=== PATIENT | female | born 1985 | race Caucasian/White ===

== ENCOUNTER 2023-11-03 15:42 | Emergency (ER) | payer BC, SELFPAY ==
[2023-11-03 15:42] VITALS: BMI 23.1
[2023-11-03 15:44] VITALS: BP 120/80
[2023-11-03 16:02] LABS: % Basophils 0.5 % (0-2); % Eosinophils 2.4 % (0-6); % Immature Granulocytes 0.1 % (0-0.5); % Lymphocytes 44.2 % (20.5-51.1); % Neutrophils 43.8 % (42.2-75.2); Absolute Eosinophils 0.2 10^3/uL (0-0.7); Absolute Lymphocytes 3.7 10^3/uL (1.2-3.4); Absolute Monocytes 0.8 10^3/uL (0.1-0.6); Absolute Neutrophils 3.7 10^3/uL (1.4-6.5); Hematocrit 36.2 % (37.0-47.0); Hemoglobin 12.5 g/dL (12.0-16.0); Mean Corp Hgb Conc. 34.5 g/dL (33.0-37.0); Mean Corpuscular Hgb 29.6 pg (27.0-31.0); Mean Corpuscular Volume 85.8 fL (81.0-99.0); Mean Platelet Volume 9.3 fL (7.4-10.4); Nucleated Red Blood Cells % 0 %; Platelet Count 365 10^3/uL (130-400); Red Blood Cell Count 4.22 10^6/uL (4.20-5.40); Red Cell Dist. Width 11.9 % (11.5-14.5); White Blood Cell Count 8.3 10^3/uL (4.8-10.8)
[2023-11-03 16:14] LABS: ALT (SGPT) 14 U/L (0-35); AST (SGOT) 20 U/L (14-36); Albumin 4.3 g/dl (3.5-5.0); Alkaline Phosphatase 48 U/L (38-126); Blood Urea Nitrogen 12 mg/dl (7-17); Calcium 9.2 mg/dl (8.4-10.2); Carbon Dioxide 26 mmol/L (22-30); Glucose 80 mg/dl (70-99); Lipase 54 U/L (23-300); Total Bilirubin 0.5 mg/dl (0.2-1.3); Total Protein 7.1 g/dl (6.3-8.2); eGFR > 60.00
[2023-11-03 16:23] LABS: Chloride 102 mmol/L (98-107); Potassium 3.6 mmol/L (3.5-5.1); Sodium 137 mmol/L (135-145)
--- NOTE | 2023-11-03 17:20 | ED.GENMED ---
History of Present Illness
General
Chief Complaint: Abdominal Pain
Source: patient
Exam Limitations: none
Time Seen by Provider: 11/03/23 16:33
Nursing documentation reviewed up to this point in time: agreed with
Travel History
Have you had any contact with someone who has COVID-19?: No
Do you have any symptoms of coronavirus? Fever > 100 degrees, chills, cough, shortness of breath, sore throat, loss of taste or smell, muscle aches, or headache?: No
History of Present Illness
History of Present Illness:
pt is a 38 y/o F with h/o lupus not currently on treatment
here with mutliple complaints
R sided lymph node tender mnoticed 3 days ago
no significant increase in size ,no relief with tylenol and motrin
tender to palpate
otherwise no painful swallowing, no ear pain, no dentla pain or swelling.
but she did just complete 3 rounds of abx for otitis media on the right side
started here in september and was treated with zithromax
then went to pcp and got doxy
then saw dr. scales and got clarithromycin which she just completed
she also had a steroid taper; she was having more hearing loss, but it has improved
she has not had any recent ear pain, drainage, fever, chills.
but during the 3rd round of abx she got covid, tested pos on 2/. she had nasal congestion, joint aches and a slight cough
she has been feeling better.
then developed this swollen gland
and last night developed LLQ pain which is worse with omvement
she has had daily 1 episode of diarrhea for about a week
no signficiant diarrhea, not copious
went to PCP and was sent here to eval for diverticulitis.
Past History
Past History
ED Past Medical History: Other (lupus)
ED Past Surgical History: None
Review of Systems
Review of Systems
Allergies reviewed?: Yes
All Other Systems: Not applicable
Phy Exam
Physical Exam
Physical Exam:
GENERAL: Alert , in no apparent distress
EYE: pupils equal and reactive
NECK: Supple, small tonsillar CANDIS tender, no erythema to skin
ENT: mmm.
mild phyarngeal erythema
no exudate
CARDIAC: Regular rate and rhythm .
LUNGS: Clear breath sounds bilaterally, no acute respiratory distress, no wheezes/rales/rhonchi
ABDOMEN: Soft, LLQ mild pain, no r/g, no cvat, normal bowel sounds
NEUROLOGICAL: Alert and oriented, no focal neuro deficits
SKIN: Warm and dry, skin intact.
MUSCULOSKELETAL: No edema, well perfused. neg vahid's sign
PSYCH: Normal and appropriate interaction.
Course
Orders/Labs/Results
Orders:
Orders
11/03/23 15:51
Complete Blood Count/With Diff Urgent
Comprehensive Metabolic Panel Urgent
HCG, Serum Qualitative Screen Urgent
Comment: ADD ON
Lipase Urgent
Monotest Urgent
Comment: ADD ON
11/03/23 17:18
Add On- LAB Urgent
Tests Added?: monospot
11/03/23 17:19
Add On- LAB Urgent
Tests Added?: hcg qual
0.9% Sodium Chloride 1000 ml [Nss] 1,000 ml IV BOLUS
Ketorolac [Toradol] 15 mg IV NOW STA
11/03/23 17:31
UA Reflex to Culture [Urinalysis Reflex To Culture] Urgent
Date Specimen was Collected: 11/03/23
Time Specimen was Collected: 17:24
Urine Microscopic Reflex Cult Urgent
Influenza A+B Rapid Molecular Urgent
SUSAN Source: Nasal Swab
Specimen Description:
11/03/23 18:04
CT Abd/pel W Iv And Oral Contr Urgent
Comment:
Reason For Exam: left lower abd pain and diarrhea
Iohexol [Omnipaque] See Protocol PO NOW STA
Abnormal Lab Results
11/03/23 11/03/23
15:51 17:31
Hct 36.2 L %
(37.0-47.0)
Absolute Lymphs (auto) 3.7 H 10^3/uL
(1.2-3.4)
Absolute Monos (auto) 0.8 H 10^3/uL
(0.1-0.6)
Leukocyte Esterase Rfl Trace A
(Negative)
Monoscreen Positive A
(Negative)
11/03/23 15:51
11/03/23 15:51
Vital Signs
Initial and Last Documented VS:
Initial Vital Signs
Temp Pulse Resp BP Pulse Ox
99.2 F 87 18 120/80 97
11/03/23 15:44 11/03/23 15:44 11/03/23 15:44 11/03/23 15:44 11/03/23 15:44
Last Documented Vital Signs
Temp Pulse Resp BP Pulse Ox
99.2 F 105 18 112/75 97
11/03/23 15:44 11/03/23 21:40 11/03/23 15:44 11/03/23 21:40 11/03/23 15:44
MDM/Problems Addressed
Differential Diagnosis Includes:
abdominal pain, diarrhea, colitis, diverticulitis, strep, covid, flu, mono
MDM/Problems Addressed:
38 y/o F with h/o lupus
here with right sided anterior cervical lymph node x 4 days
and LLQ pain today
no fever
has had recent abx for sinus infectiosn and then got covid and now has new symptoms
her abdominal exam was tender minimally on L side
givne her symptoms, i did send a mono which was pos which would explain CANDIS, and we did proceed with ct imaging to eval spleen given her pain
no splenomgaly or concerning findings
no indication for abx
pt feels well on d/c
d/c home.
*Critical Care Note
Total Time (30-74mins, 75-104mins- exclusive of procedures): Not Applicable
ED Attending Note
-
Portions of this chart may have been created with voice recognition software.� Occasional wrong word or��sound alike� substitutions may have occurred due to the inherent limitations of voice recognition software.
Discharge Plan
Departure
Patient Disposition: Home (Routine Discharge)
Date of Disposition: 11/03/23
Time of Disposition: 21:24
Patient with high blood pressure during this ER visit?: No
Condition: Fair
Covid-19: Not Applicable
Discharge Problem:
Mononucleosis
Instructions: Mononucleosis (DC)
Prescriptions:
No Action
multivitamin Tablet
1 tab PO DAILY
fluoxetine [Prozac] 20 mg Capsule
60 mg PO DAILY
Benlysta 200 mg/mL Auto-Injector
200 mg SC .QWEEKSAT
Ubrelvy 100 mg Tablet
100 mg PO ONCE
Patient Comments:
pt. states she can take every 8 hours PRN
oxycodone 5 mg tablet
5 - 10 mg PO Q4HPRN PRN (Reason: moderate to severe pain) Qty: 20 0RF
tramadol 50 mg tablet
50 - 100 mg PO Q6H PRN (Reason: pain) Qty: 20 0RF
ondansetron 4 mg tablet,disintegrating
4 mg PO Q6H PRN (Reason: nausea) Qty: 14 0RF
azithromycin [Zithromax] 250 mg tablet
250 mg PO DAILY Qty: 4 0RF
oxycodone-acetaminophen [Percocet] 5-325 mg tablet
1 tab PO Q8H PRN (Reason: Pain) Qty: 5 0RF
Referrals:
Eleazar Juarez DO [Family Provider] - Follow up in 2-3 days
Activity Restrictions/Additional Instructions:
WE ARE NOT SURE THE CAUSE OF YOUR ABDOMINLA PAIN BUT IT COULD BE RELATED TO A FEW THINGS, - HAVING RECENTLY HAD COVID, HAVING ANTIBIOTICS OVER THE PAST FEW WEEKS, BUT ALSO IT COULD BE BECAUSE OF MONO WHICH IS ANOTHER VIRUS YOU TESTED POSITIVE FOR
THIS COULD ALSO CAUSE SWOLLEN LYMPH NODES
IT IS SELF LIMITING BUT CAN CAUSE FATIGUE FOR A FEW WEEKS
AVOID CONTACT SPORTS BECAUSE MONO CAN MAKE YOUR SPLEEN ENLARGED. YOU DIDN'T HAVE ANY SIGN OF SPLEEN ENLARGEMENT TODAY
RETURN FOR SEVERE PAIN, FEVER PERSISTENT, VOMITING, SEVERE DIARRHEA, INABILITY TO SWALLOW, TROUBLE BREATHING, SKIN CHANGES OR ANY COCNERNS
OTHERWISE TAKE MOTRIN OR TYLENOL FOR YOUR LYMPH NODE PAIN
THE LYMPH NODE SHOULD DECREASE IN SIZE
IF IT IS NOT, YOU SHOULD SEE YOUR DOCTOR.
Interventions
Interventions:
*Risk Screen - Suicide Last Done: 11/03/23 15:44
*General Assessment Last Done: 11/03/23 15:44
*Neglect/Abuse Screening Last Done: 11/03/23 15:44
*ED COVID-19 Vaccine History Last Done: 11/03/23 15:44
*Nursing Disposition Last Done: 11/03/23 21:40
MQ-Utiffi-Lexxgdzjsd Assessment Last Done: 11/03/23 16:50
Discharge Date and Time
Discharge Date/Time: 11/03/23 21:40
[2023-11-03 17:42] LABS: Urine Albumin Negative (Neg - Trace); Urine Bilirubin Negative (Negative); Urine Character Clear (Clear); Urine Color Yellow; Urine Glucose Negative (Negative); Urine Ketone Negative (Negative); Urine Leukocyte Trace (Negative); Urine Nitrite Negative (Negative); Urine Occult Blood Negative (Negative); Urine Specific Gravity 1.015 (<1.030); Urine Urobilinogen Negative (Neg - 1+)
[2023-11-03 17:51] LABS: Urine Red Blood Cell None Seen /HPF (0-2)
[2023-11-03] MEDS: NSS 1000 IV (18:07)
[2023-11-03] MEDS: TORADOL 15 MG IV (18:07)
[2023-11-03 18:10] LABS: HCG, Serum Qualitative Screen Negative; Monotest Positive (Negative)
[2023-11-03] MEDS: OMNIPAQUE 50 ML PO (18:18)
[2023-11-03 21:14] VITALS: BP 112/75
[2023-11-03 21:40] VITALS: BP 112/75
== END 2023-11-03 21:40 | disposition home or self-care (01) ==
LOC: EMR 15:42
PROVIDERS: Emergency Medicine; EMERGENCY PHYSICIAN Emergency Medicine; FAMILY PHYSICIAN Family Medicine
DX: B27.90 Infectious mononucleosis, unspecified without complication (principal); M32.9 Systemic lupus erythematosus, unspecified
CPT/HCPCS: 99284; 96374; 96361; 74177; 80053; 81003; 81015; 83690; 84703; 85025; 86308; 87502; Q9967

== ENCOUNTER 2024-01-01 15:05 | Emergency (ER) | payer BC, SELFPAY ==
[2024-01-01 15:12] VITALS: BP 119/82
[2024-01-01 15:39] LABS: % Eosinophils 3.8 % (0-6); % Immature Granulocytes 0.3 % (0-0.5); % Lymphocytes 39.1 % (20.5-51.1); % Monocytes 6.3 % (1.7-9.3); % Neutrophils 49.5 % (42.2-75.2); Absolute Basophils 0.1 10^3/uL (0-0.2); Absolute Eosinophils 0.3 10^3/uL (0-0.7); Absolute Lymphocytes 2.7 10^3/uL (1.2-3.4); Absolute Monocytes 0.4 10^3/uL (0.1-0.6); Absolute Neutrophils 3.4 10^3/uL (1.4-6.5); Hematocrit 38.1 % (37.0-47.0); Hemoglobin 12.8 g/dL (12.0-16.0); Mean Corp Hgb Conc. 33.6 g/dL (33.0-37.0); Mean Corpuscular Hgb 29.4 pg (27.0-31.0); Mean Corpuscular Volume 87.4 fL (81.0-99.0); Mean Platelet Volume 9.4 fL (7.4-10.4); Nucleated Red Blood Cells % 0 %; Platelet Count 328 10^3/uL (130-400); Red Blood Cell Count 4.36 10^6/uL (4.20-5.40); Red Cell Dist. Width 12.2 % (11.5-14.5); White Blood Cell Count 6.8 10^3/uL (4.8-10.8)
[2024-01-01 15:56] LABS: ALT (SGPT) 23 U/L (0-35); AST (SGOT) 26 U/L (14-36); Albumin 4.4 g/dl (3.5-5.0); Alkaline Phosphatase 41 U/L (38-126); Blood Urea Nitrogen 12 mg/dl (7-17); Calcium 9.3 mg/dl (8.4-10.2); Carbon Dioxide 25 mmol/L (22-30); Chloride 104 mmol/L (98-107); Glucose 98 mg/dl (70-99); Potassium 3.9 mmol/L (3.5-5.1); Sodium 135 mmol/L (135-145); Total Bilirubin 0.3 mg/dl (0.2-1.3); Total Protein 7.1 g/dl (6.3-8.2); eGFR > 60.00
[2024-01-01 16:08] LABS: Troponin I < 0.012 ng/ml
[2024-01-01 17:46] VITALS: BMI 22.2
[2024-01-01 17:49] VITALS: BP 119/83
[2024-01-01 18:00] VITALS: BP 122/77
[2024-01-01 19:00] VITALS: BP 115/85
[2024-01-01 19:10] LABS: D-Dimer < 0.27 ug/mlFEU (0.00-0.50)
--- NOTE | 2024-01-01 19:16 | ED.GENMED ---
History of Present Illness
General
Chief Complaint: Chest Pain
Source: patient
Time Seen by Provider: 01/01/24 17:22
Travel History
Have you had any contact with someone who has COVID-19?: No
Do you have any symptoms of coronavirus? Fever > 100 degrees, chills, cough, shortness of breath, sore throat, loss of taste or smell, muscle aches, or headache?: No
History of Present Illness
History of Present Illness:
38-year-old female with past medical history of lupus, antiphospholipid syndrome, migraines, anxiety/depression/PTSD presenting the emergency department for evaluation of left-sided chest discomfort has been ongoing for about 3 days, today pain
little bit more constant and sharp. Symptoms were accompanied by a right-sided headache described to be typical of her usual migraine but patient notes that her right eyes seem to be very heavy and was having a difficult time keeping her right eye
open as well as experiencing left upper extremity heaviness sensation. No fevers, chills, rigors, nausea, vomiting, shortness of breath, palpitations, diaphoresis, exertional dyspnea orthopnea, lower extremity edema. Patient notes that she is
currently being worked up by cardiology as well as endocrinology for various different ailments. No other concerns at this time.
Past History
Past History
ED Past Medical History: Psychiatric and Other (lupus)
ED Past Surgical History: Appendectomy, Cholecystectomy, Gynecological, Orthopedic and Tonsilectomy
Social History
Tobacco: Non-smoker
Alcohol: Occasional
Drug: None
Personal:
Living: with family
Review of Systems
Review of Systems
All Other Systems: ROS reviewed and negative except as documented in HPI and ROS
Phy Exam
Physical Exam
Physical Exam:
GENERAL: Alert , in no apparent distress
EYE: clear conjunctiva b/l
HEAD: NCAT
ENT: o/p clr, mmm.
CARDIAC: Regular rate and rhythm .
LUNGS: Clear breath sounds bilaterally, no acute respiratory distress, no wheezes/rales/rhonchi
ABDOMEN: Soft, without focal tenderness, no r/g, no cvat
NEUROLOGICAL: Alert and oriented x 3, moves all extremities, no dysmetria no dysarthria, no facial droop
SKIN: Warm and dry, skin intact.
MUSCULOSKELETAL: No edema, well perfused.
PSYCH: Normal and appropriate interaction.
Scores
Heart Failure Risk
Heart Failure Risk Score: Not Applicable
Heart Score for Chest Pain Patients
STEMI patient?: Not applicable
Withdrawal Assessment of Alcohol
Withdrawal Assessment Completed?: Not applicable
Course
Orders/Labs/Results
Orders:
Orders
01/01/24 15:06
Electrocardiogram (*1) Urgent
Reason for Study: Chest Pain
EKG- Treatment ONCE
01/01/24 15:27
Complete Blood Count/With Diff Urgent
Comprehensive Metabolic Panel Urgent
Troponin I Urgent
01/01/24 17:57
D-Dimer Urgent
01/01/24 15:27
01/01/24 15:27
Vital Signs
Initial and Last Documented VS:
Initial Vital Signs
Temp Pulse Resp BP Pulse Ox
97.7 F 91 18 119/82 100
01/01/24 15:12 01/01/24 15:12 01/01/24 15:12 01/01/24 15:12 01/01/24 15:12
Last Documented Vital Signs
Temp Pulse Resp BP Pulse Ox
97.7 F 93 18 122/77 97
01/01/24 15:12 01/01/24 18:00 01/01/24 15:12 01/01/24 18:00 01/01/24 18:00
MDM/Problems Addressed
Differential Diagnosis Includes:
Atypical migraine, less concern for ACS presentation, PE considered as well given history of lupus and antiphospholipid syndrome, musculoskeletal etiology for chest
MDM/Problems Addressed:
38-year-old female present emergency department for evaluation of left-sided chest pain. This been ongoing for 3 days. Today symptoms seem to little bit more severe. Labs were initiated by triage and are ultimately unremarkable. I did add on a
D-dimer given patient's history of lupus and antiphospholipid syndrome. If D-dimer negative patient was stable for discharge home and continued outpatient follow-up. If positive will obtain CTA of the chest. Patient already has outpatient
follow-up arranged with cardiology and endocrinology for her various ailments.
Chronic conditions affecting care: Other (Lupus)
*Pulse Oximetry
Patient hypoxic: no
*Critical Care Note
Total Time (30-74mins, 75-104mins- exclusive of procedures): Not Applicable
Data Reviewed
Review of Other/Old Records Reveals: Labs and Records
Source: patient
Comment
Comment:
Patient D-dimer is negative. She is stable for discharge home and continued outpatient follow-up. Aware of return precautions but otherwise stable for discharge home.
ED Attending Note
-
Portions of this chart may have been created with voice recognition software.� Occasional wrong word or��sound alike� substitutions may have occurred due to the inherent limitations of voice recognition software.
Discharge Plan
Departure
Patient Disposition: Home (Routine Discharge)
Date of Disposition: 01/01/24
Time of Disposition: 19:31
Patient with high blood pressure during this ER visit?: No
Discharge Problem:
Chest pain, Headache
Instructions: Chest Pain (DC)
Prescriptions:
No Action
multivitamin Tablet
1 tab PO DAILY
fluoxetine [Prozac] 20 mg Capsule
60 mg PO DAILY
Benlysta 200 mg/mL Auto-Injector
200 mg SC .QWEEKSAT
Ubrelvy 100 mg Tablet
100 mg PO ONCE
Patient Comments:
pt. states she can take every 8 hours PRN
oxycodone 5 mg tablet
5 - 10 mg PO Q4HPRN PRN (Reason: moderate to severe pain) Qty: 20 0RF
tramadol 50 mg tablet
50 - 100 mg PO Q6H PRN (Reason: pain) Qty: 20 0RF
ondansetron 4 mg tablet,disintegrating
4 mg PO Q6H PRN (Reason: nausea) Qty: 14 0RF
azithromycin [Zithromax] 250 mg tablet
250 mg PO DAILY Qty: 4 0RF
oxycodone-acetaminophen [Percocet] 5-325 mg tablet
1 tab PO Q8H PRN (Reason: Pain) Qty: 5 0RF
Interventions
Interventions:
*Risk Screen - Suicide Last Done: 01/01/24 15:12
*General Assessment Last Done: 01/01/24 15:12
*Neglect/Abuse Screening Last Done: 01/01/24 15:12
ED- Fall Risk Assessment Last Done: 01/01/24 17:46
*ED COVID-19 Vaccine History Last Done: 01/01/24 17:46
ED- Cardiac Assessment Last Done: 01/01/24 17:46
Discharge Date and Time
Print Language: [place] CITIZ[place]
== END 2024-01-01 20:00 | disposition home or self-care (01) ==
LOC: EMR 15:05
PROVIDERS: Physician Assistant Medical; Student in an Organized Health Care Education/Training Program; EMERGENCY PHYSICIAN Emergency Medicine; FAMILY PHYSICIAN Family Medicine
DX: R07.89 Other chest pain (principal); R51.9 Headache, unspecified; H53.8 Other visual disturbances; M32.9 Systemic lupus erythematosus, unspecified; D68.61 Antiphospholipid syndrome; F43.10 Post-traumatic stress disorder, unspecified; F32.A Depression, unspecified; F41.9 Anxiety disorder, unspecified; Z90.49 Acquired absence of other specified parts of digestive tract; Z88.8 Allergy status to other drugs, medicaments and biological substances; Z88.1 Allergy status to other antibiotic agents; Z88.5 Allergy status to narcotic agent; Z91.010 Allergy to peanuts; Z88.0 Allergy status to penicillin; Z91.013 Allergy to seafood
CPT/HCPCS: 99283; 80053; 84484; 85025; 85379; 93005

== ENCOUNTER → 2024-02-26 13:54 | Outpatient (REF) | payer BC, SELFPAY | LOC: HWRCS 13:54 | PROVIDERS: ATTENDING PHYSICIAN Internal Medicine Cardiovascular Disease; FAMILY PHYSICIAN Family Medicine | DX: R00.2 Palpitations (principal) | CPT/HCPCS: 93306 ==

== ENCOUNTER → 2024-06-03 12:31 | Outpatient (REF) | payer OTHER, SELFPAY | LOC: RAD 12:31 | PROVIDERS: ATTENDING PHYSICIAN Family Medicine | DX: R10.32 Left lower quadrant pain (principal); G89.29 Other chronic pain; R55 Syncope and collapse | CPT/HCPCS: 70450 ==

== ENCOUNTER 2024-06-03 13:42 | Emergency (ER) | payer OTHER, SELFPAY ==
[2024-06-03 14:11] VITALS: BP 117/88
[2024-06-03 14:29] LABS: % Basophils 0.6 % (0-2); % Eosinophils 1.2 % (0-6); % Immature Granulocytes 0.1 % (0-0.5); % Lymphocytes 37.3 % (20.5-51.1); % Monocytes 5.7 % (1.7-9.3); % Neutrophils 55.1 % (42.2-75.2); Absolute Eosinophils 0.1 10^3/uL (0-0.7); Absolute Lymphocytes 2.6 10^3/uL (1.2-3.4); Absolute Monocytes 0.4 10^3/uL (0.1-0.6); Absolute Neutrophils 3.8 10^3/uL (1.4-6.5); Hematocrit 40.2 % (37.0-47.0); Mean Corp Hgb Conc. 34.8 g/dL (33.0-37.0); Mean Corpuscular Hgb 29.9 pg (27.0-31.0); Mean Corpuscular Volume 85.7 fL (81.0-99.0); Mean Platelet Volume 9.4 fL (7.4-10.4); Nucleated Red Blood Cells % 0 %; Platelet Count 321 10^3/uL (130-400); Red Blood Cell Count 4.69 10^6/uL (4.20-5.40); Red Cell Dist. Width 11.9 % (11.5-14.5); White Blood Cell Count 6.8 10^3/uL (4.8-10.8)
[2024-06-03 14:45] LABS: HCG, Serum Qualitative Screen Negative
[2024-06-03 14:54] LABS: ALT (SGPT) 17 U/L (0-35); AST (SGOT) 24 U/L (14-36); Alkaline Phosphatase 51 U/L (38-126); Blood Urea Nitrogen 6 mg/dl (7-17); Calcium 10.1 mg/dl (8.4-10.2); Carbon Dioxide 28 mmol/L (22-30); Chloride 101 mmol/L (98-107); Glucose 94 mg/dl (70-99); Potassium 3.9 mmol/L (3.5-5.1); Sodium 142 mmol/L (135-145); Total Bilirubin 0.5 mg/dl (0.2-1.3); eGFR > 60.00
[2024-06-03 15:02] LABS: Lipase 37 U/L (23-300)
--- NOTE | 2024-06-03 16:39 | ED.GENMED ---
History of Present Illness
General
Chief Complaint: Abdominal Pain
Source: patient
Exam Limitations: none
Time Seen by Provider: 06/03/24 16:20
Nursing documentation reviewed up to this point in time: agreed with
History of Present Illness
History of Present Illness:
Patient to ED with complaint of LLQ abdominal pain. States she has had pain for approx 1 mos but pain became worse on Friday. Sent to for outpatient CT today but test was cancelled due to 'insurance'. Sent to ED for eval. Denies fever/chills.
+nausea and diarrhea. No vomiting.
Past History
Past History
ED Past Medical History: Cancer (pre cancer cervix, vaginal canal 2013. tx with LEAP, 'chemo cream'. Abnormal PAP 2 mos ago.), Psychiatric and Other (lupus)
ED Past Surgical History: Appendectomy, Cholecystectomy, Gynecological (Hysterectomy), Orthopedic and Tonsilectomy
Social History
Tobacco: Non-smoker
Alcohol: Occasional
Drug: None
Personal:
Living: with family
Review of Systems
Review of Systems
Allergies reviewed?: Yes
All Other Systems: ROS reviewed and negative except as documented in HPI and ROS
Constitutional: Reports no symptoms
EENT: Reports no symptoms
Respiratory: Reports no symptoms
Cardiac: Reports no symptoms
ABD/GI: Reports abdominal pain (LLQ pain), nausea and diarrhea
: Reports no symptoms
Musculoskeletal: Reports no symptoms
Skin: Reports no symptoms
Neurological: Reports no symptoms
Psychiatric: Reports no symptoms
Phy Exam
General Physical Exam
General Presentation: well appearing
General age: appears stated age
General Skin: warm and dry
General Habitus: normal
General Mental: alert
General Hydration: appears well hydrated
Cardiovascular Exam
Cardiovascular Exam: regular rate/rhythm and no edema
Gastrointestinal Exam
Gastrointestinal Exam: normal bowel sounds, soft, no organomegaly, non distended and no cva tenderness
Palpation: left upper quadrant: Moderate tenderness, left lower quadrant: Moderate tenderness, right upper quadrant: No tenderness and right lower quadrant: No tenderness
Musculoskeletal Exam
Musculoskeletal Exam: full ROM and neuro vasc intact
Skin Exam
Skin Exam: normal color, warm/dry and no rash
Psychiatric Exam
Psychiatric Exam: normal mood/affect
Course
Orders/Labs/Results
Orders:
Orders
06/03/24 13:43
Test Result ONCE
06/03/24 14:19
Complete Blood Count/With Diff Urgent
Comprehensive Metabolic Panel Urgent
HCG, Serum Qualitative Screen Urgent
Lipase Urgent
06/03/24 16:37
CT Abd/pel W Iv And Oral Contr Urgent
Comment:
Reason For Exam: left abd. pain, diarrhea
Iohexol [Omnipaque] See Protocol PO NOW STA
Ketorolac [Toradol] 30 mg IV NOW STA
Ondansetron Injectable [Zofran] 4 mg IV NOW STA
06/03/24 16:38
0.9% Sodium Chloride 1000 ml [Nss] 1,000 ml IV BOLUS
06/03/24 16:51
Urinalysis Reflex To Culture Urgent
Date Specimen was Collected: 06/03/24
Time Specimen was Collected: 16:47
06/03/24 19:25
Hydrocodone 5/APAP 325 [Epsom 5/325] 1 tablet PO NOW STA
Abnormal Lab Results
06/03/24
14:19
BUN 6 L mg/dl
(7-17)
06/03/24 14:19
06/03/24 14:19
Vital Signs
Initial and Last Documented VS:
Initial Vital Signs
Temp Pulse Resp BP Pulse Ox
98.3 F 88 16 117/88 99
06/03/24 14:11 06/03/24 14:11 06/03/24 14:11 06/03/24 14:11 06/03/24 14:11
Last Documented Vital Signs
Temp Pulse Resp BP Pulse Ox
98.3 F 90 16 120/81 99
06/03/24 14:11 06/03/24 19:41 06/03/24 19:41 06/03/24 19:41 06/03/24 19:41
*Radiology
Radiology exam reviewed: radiology read reviewed
*Pulse Oximetry
Patient hypoxic: no
*Critical Care Note
Total Time (30-74mins, 75-104mins- exclusive of procedures): Not Applicable
Update Note
Update Note:
Labs, CT results discussed with patient. No findings to explain her sympotms. WIll discharge home with close follow upwith PCP. Given number for GI followup and instructions on s/s to return to ED. Short course of pain medications provided.
ED Attending Note
-
Portions of this chart may have been created with voice recognition software.� Occasional wrong word or��sound alike� substitutions may have occurred due to the inherent limitations of voice recognition software.
Discharge Plan
Departure
Patient Disposition: Home (Routine Discharge)
Date of Disposition: 06/03/24
Time of Disposition: 19:20
Patient with high blood pressure during this ER visit?: No
Condition: Good
Covid-19: Not Applicable
Discharge Problem:
Abdominal pain
Instructions: Abdominal Pain
Prescriptions:
New
hydrocodone-acetaminophen 5-325 mg tablet
1 tab PO Q4H PRN (Reason: Pain) Qty: 10 0RF
No Action
multivitamin Tablet
1 tab PO DAILY
fluoxetine [Prozac] 20 mg Capsule
60 mg PO DAILY
Benlysta 200 mg/mL Auto-Injector
200 mg SC .QWEEKSAT
Ubrelvy 100 mg Tablet
100 mg PO ONCE
Patient Comments:
pt. states she can take every 8 hours PRN
oxycodone 5 mg tablet
5 - 10 mg PO Q4HPRN PRN (Reason: moderate to severe pain) Qty: 20 0RF
tramadol 50 mg tablet
50 - 100 mg PO Q6H PRN (Reason: pain) Qty: 20 0RF
ondansetron 4 mg tablet,disintegrating
4 mg PO Q6H PRN (Reason: nausea) Qty: 14 0RF
azithromycin [Zithromax] 250 mg tablet
250 mg PO DAILY Qty: 4 0RF
oxycodone-acetaminophen [Percocet] 5-325 mg tablet
1 tab PO Q8H PRN (Reason: Pain) Qty: 5 0RF
Referrals:
Eleazar Juarez DO [Family Provider] -
Sharmaine Philip MD [Active] - Call in 1-3 days for appt
Interventions
Interventions:
*Risk Screen - Suicide Last Done: 06/03/24 14:11
*General Assessment Last Done: 06/03/24 14:11
*Neglect/Abuse Screening Last Done: 06/03/24 14:11
ED- Fall Risk Assessment Last Done: 06/03/24 16:53
*ED COVID-19 Vaccine History Last Done: 06/03/24 16:53
*Nursing Disposition Last Done: 06/03/24 19:41
SJ-Ntumza-Rzoznqizwd Assessment Last Done: 06/03/24 16:53
Discharge Date and Time
Discharge Date/Time: 06/03/24 19:42
Print Language: SW[place]
[2024-06-03 16:41] VITALS: BMI 21.4
[2024-06-03] MEDS: ZOFRAN 4 MG IV (16:42)
[2024-06-03] MEDS: TORADOL 30 MG IV (16:42)
[2024-06-03] MEDS: OMNIPAQUE 50 ML PO (16:42)
[2024-06-03] MEDS: NSS 1000 IV (16:43)
[2024-06-03 16:51] VITALS: BP 115/82
[2024-06-03 17:00] VITALS: BP 126/89
[2024-06-03 17:10] LABS: Urine Albumin Negative (Neg - Trace); Urine Bilirubin Negative (Negative); Urine Character Clear (Clear); Urine Color Yellow; Urine Glucose Negative (Negative); Urine Ketone Negative (Negative); Urine Leukocyte Negative (Negative); Urine Nitrite Negative (Negative); Urine Occult Blood Negative (Negative); Urine Urobilinogen Negative (Neg - 1+)
[2024-06-03] MEDS: NORCO 5/325 1 TABLET PO (19:33)
[2024-06-03 19:41] VITALS: BP 120/81
== END 2024-06-03 19:42 | disposition home or self-care (01) ==
LOC: EMR 13:42
PROVIDERS: Nurse Practitioner; Student in an Organized Health Care Education/Training Program; EMERGENCY PHYSICIAN Emergency Medicine; FAMILY PHYSICIAN Family Medicine
DX: R10.32 Left lower quadrant pain (principal); Z90.49 Acquired absence of other specified parts of digestive tract; Z90.710 Acquired absence of both cervix and uterus
CPT/HCPCS: 96374; 96375; 96361; 99284; 74177; 80053; 81003; 83690; 84703; 85025; Q9967

== ENCOUNTER → 2024-07-13 12:42 | Outpatient (REF) | payer OTHER, SELFPAY | LOC: RAD 12:42 | PROVIDERS: ATTENDING PHYSICIAN Family Medicine | DX: R55 Syncope and collapse (principal) | CPT/HCPCS: 93880 ==

== ENCOUNTER → 2024-11-16 14:26 | Outpatient (REF) | payer OTHER, SELFPAY | LOC: RAD 14:26 | PROVIDERS: ATTENDING PHYSICIAN Nurse Practitioner Family; FAMILY PHYSICIAN Family Medicine | DX: R09.89 Other specified symptoms and signs involving the circulatory and respiratory systems (principal) | CPT/HCPCS: 71046 ==

== ENCOUNTER → 2025-02-28 14:17 | Outpatient (REF) | payer OTHER, SELFPAY | LOC: RAD 14:17 | PROVIDERS: ATTENDING PHYSICIAN Advanced Practice Midwife; FAMILY PHYSICIAN Family Medicine | DX: R10.9 Unspecified abdominal pain (principal); R63.4 Abnormal weight loss | CPT/HCPCS: 76830; 76856 ==

== ENCOUNTER → 2025-07-15 09:53 | Outpatient (REF) | payer OTHER, SELFPAY | LOC: WDC 09:53 | PROVIDERS: ATTENDING PHYSICIAN Advanced Practice Midwife; FAMILY PHYSICIAN Family Medicine | DX: N64.4 Mastodynia (principal) | CPT/HCPCS: 76642; 77062; 77066 ==

== ENCOUNTER 2025-08-11 14:47 | Observation (INO) | payer OTHER, SELFPAY ==
[2025-08-11] VITALS (7 sets, daily range): BP systolic 100–147; BP diastolic 62–90; BMI 19.8; BMI 19.2
--- NOTE | 2025-08-11 09:38 | ED.GENMED ---
History of Present Illness
<Stephen Anguiano PA-C - Last Filed: 08/11/25 13:46>
General
Chief Complaint: Flank Pain
Source: patient
Exam Limitations: none
Time Seen by Provider: 08/11/25 09:15
History of Present Illness
History of Present Illness:
40-year-old female presents complaining of sudden onset left flank pain that radiates to the left lower abdomen that woke her from sleep at 2 AM this morning. This was preceded by a sensation of weakness before she went to bed last evening. She
has a history of lupus and is on hydroxychloroquine 200 mg daily. She also has a history of depression and is on SSRIs for this. The pain is sharp in nature comes and goes in severity with associated nausea but no vomiting. No chest pain or
shortness of breath. She does note increased urinary frequency. No other complaints. Prior surgical history includes cholecystectomy, appendectomy and hysterectomy as well as 2 C-sections
Past History
<CE Galvan Last Filed: 08/11/25 13:46>
Past History
ED Past Medical History: Cancer (pre cancer cervix, vaginal canal 2013. tx with LEAP, 'chemo cream'. Abnormal PAP 2 mos ago.), Psychiatric and Other (lupus)
ED Past Surgical History: Appendectomy, Cholecystectomy, Gynecological (Hysterectomy), Orthopedic and Tonsilectomy
Social History
Tobacco: Non-smoker
Alcohol: Occasional
Drug: None
Personal:
Living: with family
Phy Exam
<CE Galvan Last Filed: 08/11/25 13:46>
Physical Exam
Physical Exam:
General: Well-appearing female no acute respiratory distress HEENT: Normal cephalic atraumatic
Heart: Regular rate and rhythm
Lungs: Clear no wheeze
Abdomen is soft tender to the left mid abdomen and left costovertebral angle. No guarding nondistended
Extremities: No cyanosis
Course
<Stephen Anguiano PA-C - Last Filed: 08/11/25 13:46>
Orders/Labs/Results
Orders:
Orders
08/11/25 09:24
CT Abd/pel Without Iv Or Oral Urgent
Comment:
Reason For Exam: left flank pain
Ketorolac [Toradol] 15 mg IV NOW STA
Ondansetron Injectable [Zofran] 4 mg IV NOW STA
08/11/25 09:39
Complete Blood Count/With Diff Urgent
Comprehensive Metabolic Panel Urgent
08/11/25 09:41
Urinalysis Reflex To Culture Urgent
Date Specimen was Collected: 08/11/25
Time Specimen was Collected: 09:39
08/11/25 12:56
STOOL [C difficile Antigen & Toxins] Urgent
SUSAN Source: Feces/Stool
Specimen Description:
Stool Culture Urgent
SUSAN Source: Feces/Stool
Specimen Description:
0.9% Sodium Chloride 1000 ml [Nss] 1,000 ml IV BOLUS
HYDROmorphone [Dilaudid] 0.5 mg IV NOW STA
08/11/25 13:00
Piperacillin/Tazo 3.375 Gram [Zosyn] 3.375 gram in 50 ml IV NOW
08/11/25 13:43
Zosyn 3.375 grams IVPB NOW Piperacillin/Tazo 3.375 Gram [Zosyn] 3.375 gram in 50 ml IV NOW
Abnormal Lab Results
08/11/25
09:39
Alkaline Phosphatase 36 L U/L
(38-126)
08/11/25 09:39
08/11/25 09:39
Vital Signs
Initial and Last Documented VS:
Initial Vital Signs
Temp Pulse Resp BP Pulse Ox
98.4 F 89 18 147/90 100
08/11/25 09:09 08/11/25 09:09 08/11/25 09:09 08/11/25 09:09 08/11/25 09:09
Last Documented Vital Signs
Temp Pulse Resp BP Pulse Ox
98.4 F 89 18 114/78 99
08/11/25 09:09 08/11/25 09:09 08/11/25 09:09 08/11/25 10:00 08/11/25 10:00
<Catherine Huang MD - Last Filed: 08/11/25 13:02>
Orders/Labs/Results
Orders:
Orders
08/11/25 09:24
CT Abd/pel Without Iv Or Oral Urgent
Comment:
Reason For Exam: left flank pain
Ketorolac [Toradol] 15 mg IV NOW STA
Ondansetron Injectable [Zofran] 4 mg IV NOW STA
08/11/25 09:39
Complete Blood Count/With Diff Urgent
Comprehensive Metabolic Panel Urgent
08/11/25 09:41
Urinalysis Reflex To Culture Urgent
Date Specimen was Collected: 08/11/25
Time Specimen was Collected: 09:39
08/11/25 12:56
STOOL [C difficile Antigen & Toxins] Urgent
SUSAN Source: Feces/Stool
Specimen Description:
Stool Culture Urgent
SUSAN Source: Feces/Stool
Specimen Description:
0.9% Sodium Chloride 1000 ml [Nss] 1,000 ml IV BOLUS
HYDROmorphone [Dilaudid] 0.5 mg IV NOW STA
08/11/25 13:00
Piperacillin/Tazo 3.375 Gram [Zosyn] 3.375 gram in 50 ml IV NOW
08/11/25 13:43
Zosyn 3.375 grams IVPB NOW Piperacillin/Tazo 3.375 Gram [Zosyn] 3.375 gram in 50 ml IV NOW
Abnormal Lab Results
08/11/25
09:39
Alkaline Phosphatase 36 L U/L
(38-126)
08/11/25 09:39
08/11/25 09:39
Vital Signs
Initial and Last Documented VS:
Initial Vital Signs
Temp Pulse Resp BP Pulse Ox
98.4 F 89 18 147/90 100
08/11/25 09:09 08/11/25 09:09 08/11/25 09:09 08/11/25 09:09 08/11/25 09:09
Last Documented Vital Signs
Temp Pulse Resp BP Pulse Ox
98.4 F 89 18 114/78 99
08/11/25 09:09 08/11/25 09:09 08/11/25 09:09 08/11/25 10:00 08/11/25 10:00
<Stephen Anguiano PA-C - Last Filed: 08/11/25 13:46>
MDM/Problems Addressed
Differential Diagnosis Includes:
Left flank and mid abdominal pain. Differential could include renal colic versus diverticulitis versus ovarian related pathology but unlikely to be ectopic given the fact that she has had hysterectomy. Will treat symptoms with Toradol and Zofran.
Labs pending urinalysis pending ordered CT
<Stephen Anguiano PA-C - Last Filed: 08/11/25 13:46>
*Pulse Oximetry
SaO2: 100
Oxygen Mode of Delivery: Room air
Patient hypoxic: no
*Critical Care Note
Total Time (30-74mins, 75-104mins- exclusive of procedures): Not Applicable
<Stephen Anguiano PA-C - Last Filed: 08/11/25 13:46>
Update Note
Update Note:
CT consistent with acute colitis of the distal sigmoid and rectum. Discussed with emergency room attending. Patient has lupus and is immunosuppressed. She is in quite a bit of pain. Toradol not helping her discomfort. Dilaudid ordered fluids
ordered. Will add Zosyn and decide to admit for pain control and further treatment.
ED Attending Note
<Stephen Anguiano PA-C - Last Filed: 08/11/25 13:46>
-
Portions of this chart may have been created with voice recognition software.� Occasional wrong word or��sound alike� substitutions may have occurred due to the inherent limitations of voice recognition software.
<Catherine Huang MD - Last Filed: 08/11/25 13:02>
ED Attending Note
Patient seen and examined by attending physician: Yes
I performed the substantive portion of visit, reviewed & personally made and approve the management plan that is documented in note by myself or MICHELLE.: Yes
ED Attending Note:
40-year-old female presents to the emergency department with complaints of left lower quadrant pain that radiates around to the left flank area. She is nauseous but denies vomiting. She also feels flushed. She denies diarrhea, bleeding, chest
pain, shortness of breath, or other complaints. On exam, abdomen soft, tender to palpation noted particularly at the left mid and lower quadrant, no rebound or guarding. CT consistent with mild colitis. Given patient's immunosuppression and pain,
we will recommend admission, IV's antibiotics, reassessments.
Discharge Plan
Departure
Patient Disposition: Admit
Date of Disposition: 08/11/25
Time of Disposition: 13:46
Presentation/result/management discussed w/ accepting MD/DO: Hospitalist
Discharge Problem:
Colitis
Prescriptions:
No Action
multivitamin Tablet
1 tab PO DAILY
fluoxetine [Prozac] 20 mg Capsule
60 mg PO DAILY
Benlysta 200 mg/mL Auto-Injector
200 mg SC .QWEEKSAT
Ubrelvy 100 mg Tablet
100 mg PO ONCE
Patient Comments:
pt. states she can take every 8 hours PRN
oxycodone 5 mg tablet
5 - 10 mg PO Q4HPRN PRN (Reason: moderate to severe pain) Qty: 20 0RF
tramadol 50 mg tablet
50 - 100 mg PO Q6H PRN (Reason: pain) Qty: 20 0RF
ondansetron 4 mg tablet,disintegrating
4 mg PO Q6H PRN (Reason: nausea) Qty: 14 0RF
azithromycin [Zithromax] 250 mg tablet
250 mg PO DAILY Qty: 4 0RF
oxycodone-acetaminophen [Percocet] 5-325 mg tablet
1 tab PO Q8H PRN (Reason: Pain) Qty: 5 0RF
hydrocodone-acetaminophen 5-325 mg tablet
1 tab PO Q8H PRN (Reason: Pain) Qty: 10 0RF
Referrals:
Eleazar Juarez DO [Family Provider, Family Practice]
Interventions
Interventions:
*Risk Screen - Suicide Last Done: 08/11/25 09:09
*General Assessment Last Done: 08/11/25 10:02
*Neglect/Abuse Screening Last Done: 08/11/25 09:09
*ED- Fall Risk Assessment Last Done: 08/11/25 09:36
*ED COVID-19 Vaccine History Last Done: 08/11/25 09:36
*ED Influenza Vaccine History Last Done: 08/11/25 09:36
EN-Badaee-Thtbhopjot Assessment Last Done: 08/11/25 09:36
ED-Female Genitourinary Assessment Last Done: 08/11/25 09:36
Discharge Date and Time
Print Language: LAO
[2025-08-11] MEDS: TORADOL 15 MG IV (09:40)
[2025-08-11] MEDS: ZOFRAN 4 MG IV ×2 (09:40→19:35)
[2025-08-11 09:49] LABS: Hematocrit 39.9 % (37.0-47.0); Hemoglobin 13.7 g/dL (12.0-16.0); Mean Corp Hgb Conc. 34.3 g/dL (33.0-37.0); Mean Corpuscular Volume 84.9 fL (81.0-99.0); Nucleated Red Blood Cells % 0 %; Platelet Count 330 10^3/uL (130-400); Red Cell Dist. Width 11.9 % (11.5-14.5)
[2025-08-11 09:57] LABS: Urine Character Clear (Clear)
[2025-08-11 10:03] LABS: ALT (SGPT) 15 U/L (0-35); AST (SGOT) 17 U/L (14-36); Albumin 5.0 g/dl (3.5-5.0); Alkaline Phosphatase 36 U/L (38-126); Blood Urea Nitrogen 11 mg/dl (7-17); Calcium 9.8 mg/dl (8.4-10.2); Carbon Dioxide 24 mmol/L (22-30); Chloride 103 mmol/L (98-107); Estimated Creatinine Clearance 87 ml/min; Glucose 95 mg/dl (70-99); Potassium 4.1 mmol/L (3.5-5.1); Sodium 137 mmol/L (135-145); Total Protein 7.8 g/dl (6.3-8.2); eGFR > 60.00
[2025-08-11] MEDS: DILAUDID 0.5 MG IV ×2 (13:11→18:25)
[2025-08-11] MEDS: NSS 1000 IV (13:12)
[2025-08-11] MEDS: ZOSYN 50 IV ×2 (13:12→19:33)
--- NOTE | 2025-08-11 13:59 | HPS.HSE ---
Family Physician
-
Family Physician: Eleazar Juarez, DO
Chief Complaint
-
abdominal pain
History of Present Illness
Ms. Clare Duggan is a 40 yo woman with hx SLE, depression who presents to the ER with sudden onset left sided flank pain radiating to left lower abdomen.
Patient states that yesterday evening before going to bed she started to feel flush and nauseated. She did not vomit. She went to bed then woke up with sudden onset left lower quadrant abdominal pain. No fevers. She has not had diarrhea.
She states over the past year she has had a dull left lower quadrant discomfort worked up with negative MRI and vaginal US (to rule out ovarian cyst).
No chest pain. Some shortness of breath she thinks related to anxiety. No LE swelling. No joint pains or rash.
She feels hungry and has been eating crackers in the ER without pain.
Medical History
Past Medical History
Past Medical History: Reports Other (SLE, depression)
Past Surgical History: Reports Gynocological (s/p LEAP)
Social History
Tobacco: Non-smoker
Alcohol: Occasional
Family History
Family History: Not pertinent
Allergies / Home Medications
Allergies reflects when Allergies were last updated in [facility].
Home Medications with original date entered in [facility]
Allergy/Medication List:
Allergies
Allergy/AdvReac Type Severity Reaction Status Date / Time
codeine Allergy Intermediate Rash Verified 06/03/24 14:11
Penicillins Allergy Intermediate Rash Verified 06/03/24 14:11
shellfish derived Allergy Mild Rash Verified 06/03/24 14:11
levofloxacin (From Levaquin) Allergy Unknown Verified 06/03/24 14:11
peanut Allergy Anaphylaxis Verified 06/03/24 14:11
promethazine (From Phenergan) AdvReac Nausea / Verified 06/03/24 14:11
Vomiting
Home Medications
belimumab 200 mg/mL subcutaneous auto-injector (Benlysta) 200 mg SC FR Autoimmune disorder 06/07/22
cholecalciferol (vitamin D3) 25 mcg (1,000 unit) tablet (Vitamin D3) 25 mcg PO DAILY Supplement 08/11/25
fluoxetine 10 mg tablet 60 mg PO DAILY Mental Health/Anxiety 08/11/25
hydroxychloroquine 200 mg tablet (Plaquenil) 200 mg PO DAILY 08/11/25
levocetirizine 5 mg tablet (Xyzal) 5 mg PO DAILY Allergies 08/11/25
therapeutic multivitamin 1 tab PO DAILY Supplement 08/11/25
Review of Systems
-
History Source: Patient
A 12 point ROS was completed and negative except as noted: Yes
Physical Exam
Vital Signs
Vital Signs
Temp Pulse Resp BP Pulse Ox
98.4 F 89 18 114/78 99
08/11/25 09:09 08/11/25 09:09 08/11/25 09:09 08/11/25 10:00 08/11/25 10:00
Physical Exam
General: No Apparent Distress
HEENT: PERRLA
Respiratory: Clear; No Wheezes
Cardiac: S1/S2 and Regular Rhythm
GI: Other (tenderness LLQ, no rebound or guarding)
Musculoskeletal: No Edema
Skin: Warm and Dry; No Rash
Neuro: AO x 3
Psych: Calm
Laboratory Results
-
08/11/25 09:39
08/11/25 09:39
Laboratory Results
Total Bilirubin 1.0 mg/dl (0.2-1.3) 08/11/25 09:39
AST 17 U/L (14-36) 08/11/25 09:39
ALT 15 U/L (0-35) 08/11/25 09:39
Alkaline Phosphatase 36 U/L (38-126) L 08/11/25 09:39
Data Reviewed
-
Diagnostic Radiology: Report Reviewed by me
Lab Data: Labs Reviewed by me
Impression/Plan
-
Ms. Clare Duggan is a 40 yo woman with hx SLE, depression who presents to the ER with sudden onset left sided flank pain radiating to left lower abdomen.
Triage VS: T 98.4, P 89, RR 18, BP 147/90, SpO2 100%
LABS: WBC 5.2, Hg 13.7, PLT 330, Na 137, K+ 4.1, CO2 24, Cr 0.6, Glucose 95, liver enzymes WNL
CT A/P
IMPRESSION:
1. Mild bowel wall thickening and inflammatory change involving the sigmoid colon and proximal rectum, consistent with mild colitis. No pneumatosis intestinalis or extraluminal air.
2. No evidence of intestinal obstruction, nephrolithiasis, hydronephrosis, or abscess formation.
MAR: IV Zosyn
Mild Colitis, likely Infectious
-patient received Dilaudid and Toradol in the ER, remains with severe pain
-will admit to observation
-continue IV Zosyn
-collect stool studies if patient has diarrhea
-BRAT diet, patient tolerating crackers in ER - told to stop eating if worsens pain and just drink clear liquids
-GI consult if no improvement in 48 hours
-IV Toradol/ 0.5mg IV Dilaudid PRN moderate/severe pain
SLE
-hold RELIABILITY SPECIALIST Benlysta in setting of infection (due tomorrow)
-RELIABILITY SPECIALIST Plaquenil
Depression
-RELIABILITY SPECIALIST Prozac
DVT PPx Lovenox subQ
FULL CODE
--- NOTE | 2025-08-11 15:46 | CM ---
Chart reviewed and OBS form reviewed at 15:05 pm with patient
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
Independent with ADLs and able to drive
2dtrs are staying with her father's at his house while she is in the hospital
Mother Zina
PCP Dr. Eleazar Juarez
[facility] in [facility]
no hx of SNF
no hx of VN
DCP is to return back home
CM will continue to follow up for any dcp needs
--- NOTE | 2025-08-11 16:55 | PTCARENOTE ---
Pt transferred to 4w. Pt able to walk from stretcher to bed. AAOx3. C/o mild abd discomfort. Able to make needs known, safety measures in place, call butcher within reach.
[2025-08-11] MEDS: LR 1000 IV (17:28)
[2025-08-12] MEDS: ZOSYN 50 IV ×4 (01:12→19:56)
[2025-08-12] MEDS: LR 1000 IV ×2 (06:16→20:33)
[2025-08-12 07:00] VITALS: BP 116/72
[2025-08-12 07:17] LABS: Hematocrit 32.4 % (37.0-47.0); Hemoglobin 11.2 g/dL (12.0-16.0); Mean Corp Hgb Conc. 34.6 g/dL (33.0-37.0); Mean Corpuscular Volume 86.4 fL (81.0-99.0); Nucleated Red Blood Cells % 0 %; Platelet Count 250 10^3/uL (130-400); Red Cell Dist. Width 11.8 % (11.5-14.5)
[2025-08-12] MEDS: ZYRTEC 10 MG PO (07:33)
[2025-08-12] MEDS: PLAQUENIL 200 MG PO (07:33)
[2025-08-12] MEDS: PROZAC 60 MG PO (07:40)
[2025-08-12] MEDS: TORADOL 10 MG IV (07:46)
[2025-08-12 07:49] LABS: Blood Urea Nitrogen 6 mg/dl (7-17); Calcium 8.5 mg/dl (8.4-10.2); Carbon Dioxide 26 mmol/L (22-30); Chloride 105 mmol/L (98-107); Estimated Creatinine Clearance 74 ml/min; Glucose 79 mg/dl (70-99); Magnesium 1.9 mg/dl (1.6-2.3); Potassium 4.1 mmol/L (3.5-5.1); Sodium 133 mmol/L (135-145); eGFR > 60.00
[2025-08-12 12:17] VITALS: BMI 19.2
--- NOTE | 2025-08-12 12:42 | W.PN.HOSP.TC ---
Today's Communication/Plan
-
monitor vitals
see plan
monitor symptoms on diet
pain control
cw abx
Assessment / Plan
Assessment / Plan
General: No Apparent Distress
HEENT: PERRLA
Respiratory: Clear; No Wheezes
Cardiac: S1/S2 and Regular Rhythm
GI: Other (tenderness LLQ, no rebound or guarding)
Musculoskeletal: No Edema
Neuro: AO x 3
Psych: Calm
Mild Colitis, likely Infectious
Pain control, still in significant pain
-continue IV Zosyn
-collect stool studies if patient has diarrhea
- Low res diet; if sx worse then downgrade to liquids
-GI consult if no improvement; she has seen GI from [facility] in the past and had colonoscopy last year without acute abnormality.
-IV Toradol/ 0.5mg IV Dilaudid PRN moderate/severe pain
SLE
-hold DINING ROOM SUPERVISOR Benlysta in setting of infection (due tomorrow)
-DINING ROOM SUPERVISOR Plaquenil
Hyponatremia
Monitor
Depression
-DINING ROOM SUPERVISOR Prozac
DVT PPx Lovenox subQ
FULL CODE
Anticipated Discharge: 24 - 48 hours
Subjective/Interval History
-
Date of Service: August 12, 2025
Still has abdominal discomfort
Objective Data
-
Labs:
Laboratory Results
08/12/25
06:41
WBC 4.3 L
Hgb 11.2 L
Hct 32.4 L
Plt Count 250 D
Sodium 133 L
Potassium 4.1
Chloride 105
Carbon Dioxide 26
BUN 6 L
Creatinine 0.7
Glucose 79
Calcium 8.5
Vital Signs:
Vital Signs
Temp Pulse Resp BP Pulse Ox
97.9 F 88 16 116/72 99
08/12/25 07:00 08/12/25 07:00 08/12/25 07:00 08/12/25 07:00 08/12/25 07:00
I&O
08/11/25 08/12/25 08/13/25
06:59 06:59 06:59
Intake Total 1819
Balance 1819
--- NOTE | 2025-08-12 14:38 | CM ---
CM reviewed chart, patient seen resting, mother bedside.
Patient has no CM needs- confirms transport home.
Patient remains on IV antibiotics.
CM will continue to follow for all d/c needs.
Plan; home no needs anticipated
[2025-08-12 15:06] VITALS: BP 92/54
[2025-08-12] MEDS: DILAUDID 0.5 MG IV (17:48)
[2025-08-12 22:34] VITALS: BP 94/57
[2025-08-13] MEDS: ZOSYN 50 IV ×2 (01:29→08:06)
[2025-08-13 07:08] VITALS: BP 104/69
[2025-08-13 07:34] LABS: Hematocrit 32.1 % (37.0-47.0); Hemoglobin 11.2 g/dL (12.0-16.0); Mean Corp Hgb Conc. 34.9 g/dL (33.0-37.0); Mean Corpuscular Volume 85.1 fL (81.0-99.0); Nucleated Red Blood Cells % 0 %; Platelet Count 247 10^3/uL (130-400); Red Cell Dist. Width 11.9 % (11.5-14.5)
[2025-08-13] MEDS: PROZAC 60 MG PO (08:06)
[2025-08-13] MEDS: PLAQUENIL 200 MG PO (08:06)
[2025-08-13] MEDS: ZYRTEC 10 MG PO (08:10)
[2025-08-13 08:44] LABS: ALT (SGPT) 78 U/L (0-35); AST (SGOT) 37 U/L (14-36); Albumin 3.5 g/dl (3.5-5.0); Alkaline Phosphatase 34 U/L (38-126); Blood Urea Nitrogen 6 mg/dl (7-17); Calcium 8.9 mg/dl (8.4-10.2); Carbon Dioxide 28 mmol/L (22-30); Chloride 106 mmol/L (98-107); Estimated Creatinine Clearance 74 ml/min; Glucose 83 mg/dl (70-99); Potassium 4.2 mmol/L (3.5-5.1); Sodium 134 mmol/L (135-145); Total Protein 5.9 g/dl (6.3-8.2); eGFR > 60.00
--- NOTE | 2025-08-13 10:42 | W.PN.HOSP.TC ---
Addendum entered and electronically signed by Fede Wolfe MD 08/13/25 13:11:
After Augmentin appeared the patient had some perioral tingling. Does report feeling lump in her throat. Denies any shortness of breath, chest pain. Symptoms lasted about 30 minutes and resolved on its own. Given her previous history of allergy,
will switch antibiotic to cefdinir.
Addendum entered and electronically signed by Fede Wolfe MD 08/13/25 10:52:
Discussed with patient. Tolerated Zosyn. Not a true allergy. DC on Augmentin
Original Note:
Today's Communication/Plan
-
Monitor vital signs and see plan
Monitor CMP
Switch antibiotics to p.o. Augmentin
Discharge today
Time of discharge 37 minutes
Assessment / Plan
Assessment / Plan
General: No Apparent Distress
HEENT: PERRLA
Respiratory: Clear; No Wheezes
Cardiac: S1/S2 and Regular Rhythm
GI: Other (tenderness LLQ, no rebound or guarding)
Musculoskeletal: No Edema
Neuro: AO x 3
Psych: Calm
Mild Colitis, likely Infectious
Pain control, still in significant pain
Denies any diarrhea further. No stool studies collected.
DC Zosyn and switch to Augmentin on discharge
-collect stool studies if patient has diarrhea
Tolerated low residue diet
-GI consult if no improvement; she has seen GI from [facility] in the past and had colonoscopy last year without acute abnormality.
-IV Toradol/ 0.5mg IV Dilaudid PRN moderate/severe pain. Not requiring much pain medication anymore
SLE
-hold SALES ARCHITECT Benlysta in setting of infection, likely can restart next dose
-SALES ARCHITECT Plaquenil
Mild elevated LFTs
History of cholecystectomy
Denies any right upper quadrant pain
Abdominal pain improving
Advised patient to get repeat CMP with PCP next week outpatient
Hyponatremia
Monitor
Depression
-SALES ARCHITECT Prozac
DVT PPx Lovenox subQ
FULL CODE
Anticipated Discharge: Today
Subjective/Interval History
-
Date of Service: August 13, 2025
Feeling better
Objective Data
-
Labs:
Laboratory Results
08/13/25
07:08
WBC 4.2 L
Hgb 11.2 L
Hct 32.1 L
Plt Count 247
Sodium 134 L
Potassium 4.2
Chloride 106
Carbon Dioxide 28
BUN 6 L
Creatinine 0.7
Glucose 83
Calcium 8.9
Total Bilirubin 0.6
AST 37 H
ALT 78 H
Alkaline Phosphatase 34 L
Vital Signs:
Vital Signs
Temp Pulse Resp BP Pulse Ox
98.8 F 90 16 94/57 98
08/12/25 22:34 08/12/25 22:34 08/12/25 22:34 08/12/25 22:34 08/12/25 22:34
I&O
08/12/25 08/13/25 08/14/25
06:59 06:59 06:59
Intake Total 1819 1100 / 1100
Balance 1819 / 1819 1100 / 1100
--- NOTE | 2025-08-13 10:51 | W.DCSUMMARY ---
Discharge Summary
Discharge Data
Date of Admission: 08/11/25
Date of Discharge: 08/13/25
-
Pending Results: No
Hospital Course
40-year-old female with past medical history of lupus, depression came to the hospital for abdominal pain with CT and symptoms concerning for colitis. Patient did not had any diarrhea so no stool studies were collected. Patient initially was on IV
antibiotic which were later transitioned to oral antibiotics prior to discharge. Given her allergy to penicillin and Flagyl, she was switched to oral cefdinir. Patient also had mild elevated LFTs for which you instructed to follow-up outpatient
for repeat blood work. Her symptoms continue to improve over time and she was able to tolerate diet. She was then discharged home with instructions to follow-up with all her physicians outpatient. On discharge she was also instructed to follow-up
with GI for possible colonoscopy.
Discharge Plan
-
Patient Disposition: Home (Routine Discharge)
Discharge Diagnosis/Procedures: Acute colitis
Mild elevated LFTs
History of lupus
Hyponatremia
Condition: Fair
Diet: Low Residue
Activity: As tolerated
Driving Restrictions: As prior to admission
Bathing Restrictions: None
Blood Work: CMP next week with PCP
Activity Restrictions/Additional Instructions:
Follow-up with your hand touch up painter outpatient
Referrals:
Eleazar Juarez DO [Family Provider, Family Practice] - in less than 1 week
Prescriptions:
New
cefdinir 300 mg Capsule
300 mg PO Q12 10 Days Qty: 20 0RF
Continued
fluoxetine 10 mg Tablet
60 mg PO DAILY
therapeutic multivitamin Tablet
1 tab PO DAILY
hydroxychloroquine [Plaquenil] 200 mg Tablet
200 mg PO DAILY
cholecalciferol (vitamin D3) [Vitamin D3] 25 mcg (1,000 unit) Tablet
25 mcg PO DAILY
levocetirizine [Xyzal] 5 mg Tablet
5 mg PO DAILY
Held
Benlysta 200 mg/mL Auto-Injector
200 mg SC FR
Hold Instructions: Restart when okay with the outpatient physician
Discharge Orders:
Discharge Patient (As Directed); Ordered 08/13/25
Ordered By: Fede Wolfe
Discharge Date and Time
Discharge Date/Time: 08/13/25 13:42
Print Language: LATVIAN
[2025-08-13] MEDS: LR IV (11:17)
[2025-08-13] MEDS: FLUZONE (6 mos+) 2025-2026 FORMULA 0.5 ML IM (11:21)
[2025-08-13] MEDS: AUGMENTIN 875 MG/125 MG 1 TABLET PO (11:21)
[2025-08-13 11:25] VITALS: BP 115/78
--- NOTE | 2025-08-13 11:32 | CM ---
patient seen at bedside with mom
po antibiotic - discharge today
no needs
PLAN: Home, no needs
mom to transport
--- NOTE | 2025-08-13 11:36 | PTCARENOTE ---
Addendum entered by Lacy Kruger RN 08/13/25 13:08:
Dr Sanders came to assess pt. He will change her discharge antibiotic. discharge instructions will be reprinted for patient.
Original Note:
pt given her first dose of amoxicillin po. 10 minutes after taking pill pt with complaint of feeling like she is swallowing around a lump. she also reports tingling around mouth. Dr sanders aware. pt denies sob or any breathing difficulties. Per Dr
Aiden pt is to be monitored for an hour before discharge. Pt and mom updated and are agreeable to observation.
== END 2025-08-13 13:42 | disposition home or self-care (01) ==
LOC: 4 WEST ACU 14:47
PROVIDERS: Physician Assistant; ADMITTING PHYSICIAN Student in an Organized Health Care Education/Training Program; ATTENDING PHYSICIAN Internal Medicine; EMERGENCY PHYSICIAN Emergency Medicine; FAMILY PHYSICIAN Family Medicine
DX: K52.9 Noninfective gastroenteritis and colitis, unspecified (principal); F32.A Depression, unspecified; E87.1 Hypo-osmolality and hyponatremia; R79.89 Other specified abnormal findings of blood chemistry; F41.9 Anxiety disorder, unspecified; M32.9 Systemic lupus erythematosus, unspecified; Z11.52 Encounter for screening for COVID-19; Z23 Encounter for immunization; Z79.899 Other long term (current) drug therapy
CPT/HCPCS: 74176; 80048; 80053; 81003; 83735; 85025; 90656; 93005; 96365; 96375; 99284; G0008; G0378

== ENCOUNTER 2025-08-23 22:47 | Observation (INO) | payer OTHER, SELFPAY ==
[2025-08-23 13:31] VITALS: BP 120/82
[2025-08-23 13:57] LABS: Hematocrit 38.6 % (37.0-47.0); Hemoglobin 13.4 g/dL (12.0-16.0); Mean Corp Hgb Conc. 34.7 g/dL (33.0-37.0); Mean Corpuscular Volume 84.1 fL (81.0-99.0); Nucleated Red Blood Cells % 0 %; Platelet Count 401 10^3/uL (130-400); Red Cell Dist. Width 12.0 % (11.5-14.5)
[2025-08-23 14:19] LABS: ALT (SGPT) 22 U/L (0-35); AST (SGOT) 22 U/L (14-36); Albumin 5.0 g/dl (3.5-5.0); Alkaline Phosphatase 35 U/L (38-126); Blood Urea Nitrogen 7 mg/dl (7-17); Calcium 9.8 mg/dl (8.4-10.2); Carbon Dioxide 27 mmol/L (22-30); Chloride 103 mmol/L (98-107); Glucose 102 mg/dl (70-99); HCG, Serum Qualitative Screen Negative; Lipase 58 U/L (23-300); Potassium 4.0 mmol/L (3.5-5.1); Sodium 136 mmol/L (135-145); Total Protein 8.0 g/dl (6.3-8.2); eGFR > 60.00
[2025-08-23 17:07] VITALS: BP 113/84
--- NOTE | 2025-08-23 17:48 | ED.GENMED ---
History of Present Illness
General
Chief Complaint: Abdominal Pain
Source: patient
Time Seen by Provider: 08/23/25 17:30
History of Present Illness
History of Present Illness:
This patient is a 40-year-old female who was recently hospitalized for colitis, discharged on cefdinir, who presents emergency department with complaints of left upper mid and lower quadrant pain mostly in the left lower quadrant. She states that
she has never been pain-free since her discharge from the hospital earlier this month, but last night the pain got significantly worse. The pain radiates to the left flank area is constant but then will have exacerbations that comes in waves
without specific provoking or relieving factors. She denies associated fever, chills, chest pain, urinary symptoms. She had 2 loose nonbloody bowel movements today. Patient states she saw her PCP last week and had labs and a stool sample that
were unremarkable.
Past History
Past History
ED Past Medical History: Cancer (pre cancer cervix, vaginal canal 2013. tx with LEAP, 'chemo cream'. Abnormal PAP 2 mos ago.), Psychiatric and Other (lupus)
ED Past Surgical History: Appendectomy, Cholecystectomy, Gynecological (Hysterectomy), Orthopedic and Tonsilectomy
Social History
Tobacco: Non-smoker
Alcohol: Occasional
Drug: None
Personal:
Living: with family
Phy Exam
Physical Exam
Physical Exam:
GENERAL: Alert , in no apparent distress
EYE: pupils equal and reactive
NECK: Supple, no significant adenopathy.
ENT: o/p clr, mmm.
CARDIAC: Regular rate and rhythm .
LUNGS: Clear breath sounds bilaterally, no acute respiratory distress, no wheezes/rales/rhonchi
ABDOMEN: Soft, mild left mid and lower quadrant tenderness, no r/g, no cvat
NEUROLOGICAL: Alert and oriented, no focal neuro deficits
SKIN: Warm and dry, skin intact.
MUSCULOSKELETAL: No edema, well perfused.
PSYCH: Normal and appropriate interaction.
Course
Orders/Labs/Results
Orders:
Orders
08/23/25 13:36
Test Result ONCE
08/23/25 13:40
Complete Blood Count/With Diff Urgent
Comprehensive Metabolic Panel Urgent
HCG, Serum Qualitative Screen Urgent
Comment: Notify provider if positive test present
Lipase Urgent
08/23/25 17:48
CT Abd/pel W Iv And Oral Contr Urgent
Comment:
Reason For Exam: luq/llq pain, hx SLE
Iohexol [Omnipaque] See Protocol PO NOW STA
Test Result ONCE
08/23/25 17:51
0.9% Sodium Chloride 1000 ml [Nss] 1,000 ml IV BOLUS
Ketorolac [Toradol] 15 mg IV NOW STA
08/23/25 18:01
Urinalysis Reflex To Culture Urgent
Date Specimen was Collected: 08/23/25
Time Specimen was Collected: 18:00
Urine Microscopic Reflex Cult Urgent
Urine Culture Urgent
SUSAN Source: U
Specimen Description:
Date Specimen was Collected: 08/23/25
Time Specimen was Collected: 18:00
08/23/25 18:02
Ondansetron Injectable [Zofran] 4 mg IV NOW STA
08/23/25 19:53
Dicyclomine [Bentyl] 20 mg PO NOW STA
08/23/25 22:21
Acetaminophen [Tylenol] 650 mg PO NOW STA
08/23/25 22:25
Admit/Transfer Patient As Directed
Co-Sign Provider:
Level of Care: Observation services
Assign to:: Medical/Surgical
Physician / Group: sam
Diagnosis: abdominal pain
08/23/25 22:26
Code Status As Directed
Resuscitation Status: Full Code
PRN Pain Medication Management As Directed
May give lesser potent ordered pain med per pt: Yes
preference::
Protocol:: Medication orders for pain may be administered in a
manner that supports deferring to patient preference
when the pt is:
- Requesting an ordered lesser potent pain medication.
Least to most potent pain medications are defined
as: acetaminophen < NSAID < tramadol < opioids
(morphine, oxycodone, hydromorphone).
- Requesting a lesser dose of the same medication IF
ORDERED.
- Requesting a less intrusive route of administration
if both routes are prescribed by the provider (PO <
IV).
Abnormal Lab Results
08/23/25 08/23/25
13:40 18:01
Plt Count 401 H 10^3/uL
(130-400)
Glucose 102 H mg/dl
(70-99)
Alkaline Phosphatase 35 L U/L
(38-126)
Urine Ketones 1+ A
(Negative)
Ur Occult Blood Reflex 1+ A
(Negative)
Urine Bacteria (Reflex) Many A
(Negative)
Urine Albumin (Reflex) 1+ A
(Neg - Trace)
08/23/25 13:40
08/23/25 13:40
Vital Signs
Initial and Last Documented VS:
Initial Vital Signs
Temp Pulse Resp BP Pulse Ox
98.1 F 98 20 120/82 97
08/23/25 13:31 08/23/25 13:31 08/23/25 13:31 08/23/25 13:31 08/23/25 13:31
Last Documented Vital Signs
Temp Pulse Resp BP Pulse Ox
97.5 F 74 16 115/89 99
08/23/25 19:30 08/23/25 19:30 08/23/25 19:30 08/23/25 19:30 08/23/25 19:30
*Pulse Oximetry
SaO2: 99
Oxygen Mode of Delivery: Room air
Update Note
Update Note:
Patient presents to the Emergency Department with __abdominal pain
Number and Complexity of Problems Addressed at the Encounter
� Chronic conditions affecting care:
� Acute Exacerbation and/or Progression of Chronic Illness:
� Differential Diagnosis includes: But not limited to colitis, diverticulitis, kidney stone, etc. etc.
Amount and/or Complexity of Data to be Reviewed and Analyzed
� I performed an independent evaluation of and my interpretation is:
EKG:
CT:Prior cholecystectomy. No findings to suggest biliary tract dilatation.
No intestinal obstruction or free air. Distal descending colon, sigmoid and rectum nonopacified with oral contrast, limited. Findings likely representing improving/resolving distal colitis in comparison to recent prior study.
Subcentimeter low-attenuation right renal lesion too small to characterize. Symmetric renal excretion.
Xrays:
Laboratory Studies: Generally unremarkable, normal white blood cell count, UA not suggestive of infection
Other:
� Review of other/old records reveals: Discharge summary from earlier hospitalization reviewed by me, patient had antibiotic allergic reactions and therefore was switched to cefdinir.
� Clinical information was obtained by an independent historian:
� Prescriptions/Medications Considered but not given:
� Further testing considered but not performed:
Risk of Complications and/or Morbidity or Mortality of Patient Management
� Social determinants of health affecting care:
� Discussion with other providers (PCP, Hospitalists, Consultants, etc):
� Escalation of care including admission/observation vs risk of discharge considered: 10:40 PM multiple reassessments here patient continues to report abdominal pain and does have tenderness to palpation in the left mid to lower
quadrant. No rebound or guarding. Is tearful, reluctant to be discharged and states 'I will just be back here'. Has not been able to follow-up with her GI doctor at [facility]. Case discussed with hospitalist for overnight observation
consideration for GI consult in AM. Consideration for potential GI complications of her lupus however exam and workup not suggestive of hepatitis, pancreatitis, mesenteric ischemia, ascites, etc.
ED Attending Note
-
Portions of this chart may have been created with voice recognition software.� Occasional wrong word or��sound alike� substitutions may have occurred due to the inherent limitations of voice recognition software.
Discharge Plan
Departure
Patient Disposition: Admit
Date of Disposition: 08/23/25
Time of Disposition: 22:45
Admit to: Med/Surg
Presentation/result/management discussed w/ accepting MD/DO: Hospitalist
Condition: Fair
Discharge Problem:
Abdominal pain
Prescriptions:
No Action
fluoxetine 10 mg Tablet
60 mg PO DAILY
therapeutic multivitamin Tablet
1 tab PO DAILY
hydroxychloroquine [Plaquenil] 200 mg Tablet
200 mg PO DAILY
cholecalciferol (vitamin D3) [Vitamin D3] 25 mcg (1,000 unit) Tablet
25 mcg PO DAILY
levocetirizine [Xyzal] 5 mg Tablet
5 mg PO DAILY
Referrals:
Eleazar Juarez DO [Family Provider, Family Practice]
Interventions
Interventions:
*Risk Screen - Suicide Last Done: 08/23/25 13:30
*General Assessment Last Done: 08/23/25 13:31
*Neglect/Abuse Screening Last Done: 08/23/25 13:31
*ED COVID-19 Vaccine History Last Done: 08/23/25 17:39
*ED Influenza Vaccine History Last Done: 08/23/25 17:39
[facility] Fall Risk Assessment Tool Last Done: 08/23/25 17:39
BF-Cloofn-Cptdijdblk Assessment Last Done: 08/23/25 17:39
Discharge Date and Time
Print Language: ANDORRAN
[2025-08-23 18:08] LABS: Urine Character Clear (Clear)
[2025-08-23 18:14] LABS: Urine Red Blood Cell 0-2 /HPF (0-2); Urine White Cell 0-2 /HPF (0-5)
[2025-08-23] MEDS: NSS 1000 IV (18:14)
[2025-08-23] MEDS: TORADOL 15 MG IV (18:14)
[2025-08-23] MEDS: OMNIPAQUE 50 ML PO (18:14)
[2025-08-23] MEDS: ZOFRAN 4 MG IV (18:14)
[2025-08-23 19:30] VITALS: BP 115/89
[2025-08-23] MEDS: BENTYL 20 MG PO (20:08)
--- NOTE | 2025-08-23 22:07 | HPS.HSE ---
Addendum entered and electronically signed by Won Cordova DO 08/23/25 23:25:
Patient seen and examined independently. Agree with findings and plan as set forth by ZULMA Culp.
Patient is a 40y F with PMH significant for lupus and recent hospitalization for colitis who presents to ED complaining of recurrent LLQ abdominal pain. Patient states that she has continued to have loose stools since discharge - but decreasing
in frequency. Only 2 BM in the past 24 hours. Her pain had improved until last PM when it returned. She presented to the ED for further evaluation.
Work-up in the ED has proven fairly unremarkable; however, patient continues to complain of pain.
Ass:
Abdominal Pain
Recent Colitis
Lupus
Anxiety / Depression
Plan:
Observe overnight for symptom control / further evaluation.
CT with no new / acute findings.
Supportive care, diet as tolerated, etc.
Consider GI evaluation if symptoms worsen or persist.
Continue usual home medications.
Original Note:
Family Physician
-
Family Physician: Eleazar Juarez DO
Chief Complaint
-
right abdominal pain
History of Present Illness
40-year-old female who was recently hospitalized for colitis, discharged on cefdinir, lupus who presents emergency department with complaints of left sided abdominal pain since last night. patient stated diarrhea everyday since the discharge. today
she had loose stools twice She denies associated fever, chills, BARTHOLOMEW. she complained of dizzy. she was sob with pain. denied dysuria or hematuria
Ct abdomen pelvis with no acute findings. admitting for further mangement.
Medical History
Past Medical History
Past Medical History: Reports Other
Additional Past Medical History:
migraine
lupus
allergic rhinitis
depression with anxiety
HPV precancer
lyme disease
chicken pox
shingles
osteo
arthritis
asthma
colitis
Past Surgical History: Reports Other
Additional Past Surgical History:
cholecystectomy
appendectomy
right shoulder surgery
breast reduction
vulvectomy leep
right side fallopian tube removal
c sections
tonsillectomy
adenoidectomy
hysterectomy
Social History
Tobacco: Non-smoker
Alcohol: Occasional
Drug: None
Family History
Family History: Not pertinent
Allergies / Home Medications
Allergies reflects when Allergies were last updated in [facility].
Home Medications with original date entered in [facility]
Allergy/Medication List:
Allergies
Allergy/AdvReac Type Severity Reaction Status Date / Time
amoxicillin (From Augmentin) Allergy Swelling Verified 08/23/25 13:35
clavulanic acid (From Allergy Swelling Verified 08/23/25 13:35
Augmentin)
codeine Allergy Rash Verified 08/23/25 13:35
levofloxacin (From Levaquin) Allergy Unknown Verified 08/23/25 13:35
peanut Allergy Anaphylaxis Verified 08/23/25 13:35
Penicillins Allergy Rash Verified 08/23/25 13:35
promethazine (From Phenergan) Allergy Nausea / Verified 08/23/25 13:35
Vomiting
shellfish derived Allergy Rash Verified 08/23/25 13:35
Home Medications
belimumab 200 mg/mL subcutaneous auto-injector (Benlysta) 200 mg SC FR Autoimmune disorder 06/07/22
Held on 08/13/25. Instructions: Restart when okay with the outpatient physician
cholecalciferol (vitamin D3) 25 mcg (1,000 unit) tablet (Vitamin D3) 25 mcg PO DAILY Supplement 08/11/25
fluoxetine 10 mg tablet 60 mg PO DAILY Mental Health/Anxiety 08/11/25
hydroxychloroquine 200 mg tablet (Plaquenil) 200 mg PO DAILY Autoimmune Disorder 08/11/25
levocetirizine 5 mg tablet (Xyzal) 5 mg PO DAILY Allergies 08/11/25
therapeutic multivitamin 1 tab PO DAILY Supplement 08/11/25
cefdinir 300 mg capsule 300 mg PO Q12 10 days #20 caps 08/13/25
Review of Systems
-
Constitutional: Reports No Symptoms
EENT: Reports No Symptoms
Respiratory: Reports No Symptoms
Cardiac: Reports No Symptoms
Abdomen/GI: Reports Abdominal Pain and Diarrhea
: Reports No Symptoms
Musculoskeletal: Reports No Symptoms
Skin: Reports No Symptoms
Neurological: Reports No Symptoms
Endocrine: Reports No Symptoms
Hematologic/Lymphatic: Reports No Symptoms
Psych: Reports No Symptoms
Physical Exam
Vital Signs
Vital Signs
Temp Pulse Resp BP Pulse Ox
97.5 F 74 16 115/89 99
08/23/25 19:30 08/23/25 19:30 08/23/25 19:30 08/23/25 19:30 08/23/25 19:30
Physical Exam
General: Well Developed, Well Nourished and No Apparent Distress
HEENT: NormoCephalic, Moist mucous membranes and Atraumatic
Respiratory: Clear
Cardiac: S1/S2 and Regular Rhythm; No Murmur or Rub
GI: Soft, Non Distended, Normal Bowel Sounds and Tender; No Organomegaly
Rectal: Deferred by Provider
Musculoskeletal: No Clubbing, No Cyanosis and No Edema
Skin: No Rash
Neuro: AO x 3 and Nonfocal/grossly intact
Psych: Calm
Laboratory Results
-
08/23/25 13:40
08/23/25 13:40
Laboratory Results
Total Bilirubin 0.7 mg/dl (0.2-1.3) 08/23/25 13:40
AST 22 U/L (14-36) 08/23/25 13:40
ALT 22 U/L (0-35) 08/23/25 13:40
Alkaline Phosphatase 35 U/L (38-126) L 08/23/25 13:40
Lipase Cancelled 08/23/25 18:01
Data Reviewed
-
CT Scan: Report Reviewed by me
Lab Data: Labs Reviewed by me
Impression/Plan
-
#abdominal pain/diarrhea
-CT with the impression of prior cholecystectomy. No findings to suggest biliary tract dilatation.No intestinal obstruction or free air. Distal descending colon, sigmoid and rectum nonopacified with oral contrast, limited. Findings likely
representing improving/resolving distal colitis in comparison to recent prior study.Subcentimeter low-attenuation right renal lesion too small to characterize. Symmetric renal excretion.
-Tylenol prn for fever and pain
-clear liquid diet advance as tolerated
#SLE
-PREMIUM CARD CANCELLATION CLERK Plaquenil
#Depression
-PREMIUM CARD CANCELLATION CLERK Prozac
#DVT PPx Lovenox subQ
#CODE status
-full code
[2025-08-23] MEDS: TYLENOL 650 MG PO (22:43)
[2025-08-23 22:46] VITALS: BP 115/69
[2025-08-24] MEDS: DILAUDID 0.25 MG IV (00:58)
--- NOTE | 2025-08-24 05:08 | PTCARENOTE ---
Patient arrived on unit @0034 via stretcher from ED, ambulate to bed independently. Patient AAOx3 c/o 03/31 LLQ ABD pain. CONSULTING PROPERTY MANAGER notified and IV dilaudid 0.25 mg order received and administered, plan of care continues.
[2025-08-24 06:00] VITALS: BMI 17.3
[2025-08-24 07:03] VITALS: BP 106/60
[2025-08-24] MEDS: ZYRTEC 10 MG PO (07:53)
[2025-08-24] MEDS: PROZAC 60 MG PO (07:53)
[2025-08-24] MEDS: PLAQUENIL 200 MG PO (07:53)
[2025-08-24] MEDS: TYLENOL 650 MG PO (07:56)
[2025-08-24 09:00] LABS: Hematocrit 35.5 % (37.0-47.0); Hemoglobin 12.4 g/dL (12.0-16.0); Mean Corp Hgb Conc. 34.9 g/dL (33.0-37.0); Mean Corpuscular Volume 84.7 fL (81.0-99.0); Nucleated Red Blood Cells % 0 %; Platelet Count 301 10^3/uL (130-400); Red Cell Dist. Width 12.0 % (11.5-14.5)
[2025-08-24] MEDS: TORADOL 15 MG IV ×2 (09:52→16:49)
[2025-08-24 09:57] LABS: ALT (SGPT) 143 U/L (0-35); AST (SGOT) 164 U/L (14-36); Albumin 4.3 g/dl (3.5-5.0); Alkaline Phosphatase 47 U/L (38-126); Blood Urea Nitrogen 9 mg/dl (7-17); Calcium 9.0 mg/dl (8.4-10.2); Carbon Dioxide 25 mmol/L (22-30); Chloride 103 mmol/L (98-107); Estimated Creatinine Clearance 74 ml/min; Glucose 96 mg/dl (70-99); Potassium 4.3 mmol/L (3.5-5.1); Sodium 133 mmol/L (135-145); Total Protein 6.8 g/dl (6.3-8.2); eGFR > 60.00
--- NOTE | 2025-08-24 11:55 | W.PN.HOSP.TC ---
Today's Communication/Plan
-
adat as tolerated
encourage po intake
ppi/anti-nausea prn
Assessment / Plan
Assessment / Plan
General: Well Developed, Well Nourished and No Apparent Distress
HEENT: NormoCephalic, Moist mucous membranes and Atraumatic
Respiratory: Clear
Cardiac: S1/S2 and Regular Rhythm; No Murmur or Rub
GI: Soft, Non Distended, Normal Bowel Sounds and Tender LLQ; No Organomegaly
Rectal: Deferred by Provider
Musculoskeletal: No Clubbing, No Cyanosis and No Edema
Skin: No Rash
Neuro: AO x 3 and Nonfocal/grossly intact
Psych: Calm
#abdominal pain/diarrhea likely 2/2 recent colitis
-CT with the impression of prior cholecystectomy. No findings to suggest biliary tract dilatation.No intestinal obstruction or free air. Distal descending colon, sigmoid and rectum nonopacified with oral contrast, limited. Findings likely
representing improving/resolving distal colitis in comparison to recent prior study.Subcentimeter low-attenuation right renal lesion too small to characterize. Symmetric renal excretion.
-Tylenol prn for fever and pain
-advance to fulls. ADAT.
-add ppi. anti-nausea prn. tylenol/toradol prn
-no bm so far today.
#Mild transaminitis
-s/p cholecystectomy.
- CT scan pancreas normal. No findings to suggest biliary tract dilatation.
-? Could be from recent bout of infection colitis versus antibiotics
- T. bili normal. Alk phos normal.
-Trend for now.
#SLE
-PENOLOGY PROFESSOR Plaquenil
#Depression
-PENOLOGY PROFESSOR Prozac
#DVT PPx Lovenox subQ
#CODE status
-full code
Anticipated Discharge: Within 24 hours
Subjective/Interval History
-
Date of Service: August 24, 2025
states of abd pain
states of nausea but no vomiting
no bm so far today
had 2 loose bm yesterday
Objective Data
-
Labs:
Laboratory Results
08/24/25
08:40
WBC 5.6
Hgb 12.4
Hct 35.5 L
Plt Count 301 D
Sodium 133 L
Potassium 4.3
Chloride 103
Carbon Dioxide 25
BUN 9
Creatinine 0.7
Glucose 96
Calcium 9.0
Total Bilirubin 1.0
AST 164 H
ALT 143 H
Alkaline Phosphatase 47
Vital Signs:
Vital Signs
Temp Pulse Resp BP Pulse Ox
98.2 F 82 18 106/60 99
08/24/25 07:03 08/24/25 07:03 08/24/25 07:03 08/24/25 07:03 08/24/25 09:35
I&O
08/23/25 08/24/25 08/25/25
06:59 06:59 06:59
Intake Total 480 / 480
Balance 480 / 480
Data Reviewed
-
Total Time Spent with Patient (in minutes): 55
[2025-08-24] MEDS: ZOFRAN 4 MG IV (12:05)
[2025-08-24] MEDS: PROTONIX 40 MG PO (12:05)
[2025-08-24 14:35] VITALS: BMI 17.2
--- NOTE | 2025-08-24 14:42 | CM ---
Addendum entered by Yeimy Storey 08/24/25 15:25:
Patient will have a friend or order an uber for transportation home at discharge.
Original Note:
Chart reviewed and OBS form reviewed with Clare.
Lives with 2 dtrs, ages 7 and 10 yo. They live in a 2 story townhouse with 2 entry steps.
Patient is independent with ADLS, drives in the community.
Plan: Discharge to home with no identified needs.
PCP Dr. Eleazar Juarez
[facility] in [address]
[2025-08-24 15:10] VITALS: BP 97/68
[2025-08-25] VITALS: BP 104/68
[2025-08-25 07:31] VITALS: BP 111/62
[2025-08-25] MEDS: PROTONIX 40 MG PO (08:18)
[2025-08-25] MEDS: TYLENOL 650 MG PO (08:18)
[2025-08-25] MEDS: PLAQUENIL 200 MG PO (08:18)
[2025-08-25] MEDS: ZYRTEC 10 MG PO (08:18)
[2025-08-25] MEDS: PROZAC 60 MG PO (08:18)
[2025-08-25 08:27] LABS: Hematocrit 36.8 % (37.0-47.0); Hemoglobin 12.8 g/dL (12.0-16.0); Mean Corp Hgb Conc. 34.8 g/dL (33.0-37.0); Mean Corpuscular Volume 84.8 fL (81.0-99.0); Nucleated Red Blood Cells % 0 %; Platelet Count 310 10^3/uL (130-400); Red Cell Dist. Width 12.0 % (11.5-14.5)
[2025-08-25 08:44] LABS: ALT (SGPT) 97 U/L (0-35); AST (SGOT) 48 U/L (14-36); Albumin 4.3 g/dl (3.5-5.0); Alkaline Phosphatase 42 U/L (38-126); Blood Urea Nitrogen 9 mg/dl (7-17); Calcium 9.4 mg/dl (8.4-10.2); Carbon Dioxide 25 mmol/L (22-30); Chloride 106 mmol/L (98-107); Estimated Creatinine Clearance 74 ml/min; Glucose 70 mg/dl (70-99); Potassium 4.4 mmol/L (3.5-5.1); Sodium 138 mmol/L (135-145); Total Protein 6.8 g/dl (6.3-8.2); eGFR > 60.00
[2025-08-25] MEDS: ZOFRAN 4 MG IV (10:11)
--- NOTE | 2025-08-25 11:16 | W.PN.HOSP.TC ---
Today's Communication/Plan
-
Plan for tentative DC later today if tolerating diet
LFTs improving
Assessment / Plan
Assessment / Plan
General: Well Developed, Well Nourished and No Apparent Distress
HEENT: NormoCephalic, Moist mucous membranes and Atraumatic
Respiratory: Clear
Cardiac: S1/S2 and Regular Rhythm; No Murmur or Rub
GI: Soft, Non Distended, Normal Bowel Sounds and Tender LLQ; No Organomegaly
Rectal: Deferred by Provider
Musculoskeletal: No Clubbing, No Cyanosis and No Edema
Skin: No Rash
Neuro: AO x 3 and Nonfocal/grossly intact
Psych: Calm
#abdominal pain/diarrhea likely 2/2 recent colitis
-CT with the impression of prior cholecystectomy. No findings to suggest biliary tract dilatation.No intestinal obstruction or free air. Distal descending colon, sigmoid and rectum nonopacified with oral contrast, limited. Findings likely
representing improving/resolving distal colitis in comparison to recent prior study.Subcentimeter low-attenuation right renal lesion too small to characterize. Symmetric renal excretion.
-Tylenol prn for fever and pain
- Advance to LRD.
- Added ppi. anti-nausea prn. tylenol/toradol prn
- Discussed about need to follow-up with her outpatient wood repatcher.
#Mild transaminitis
-s/p cholecystectomy.
- CT scan pancreas normal. No findings to suggest biliary tract dilatation.
-? Could be from recent bout of infection colitis versus antibiotics
- T. bili normal. Alk phos normal.
-Trend for now. Improving
#SLE
-DRY END OPERATOR Plaquenil
#Depression
-DRY END OPERATOR Prozac
#DVT PPx Lovenox subQ
#CODE status
-full code
Anticipated Discharge: Today
Subjective/Interval History
-
Date of Service: August 25, 2025
Tolerated cream of wheat
No bowel movements since yesterday morning
Remains with intermittent abdominal pain
Objective Data
-
Labs:
Laboratory Results
08/25/25
07:36
WBC 4.5 L
Hgb 12.8
Hct 36.8 L
Plt Count 310
Sodium 138
Potassium 4.4
Chloride 106
Carbon Dioxide 25
BUN 9
Creatinine 0.7
Glucose 70
Calcium 9.4
Total Bilirubin 0.7
AST 48 H
ALT 97 H
Alkaline Phosphatase 42
Vital Signs:
Vital Signs
Temp Pulse Resp BP Pulse Ox
97.9 F 98 14 111/62 100
08/25/25 07:31 08/25/25 07:31 08/25/25 07:31 08/25/25 07:31 08/25/25 07:31
I&O
08/24/25 08/25/25 08/26/25
06:59 06:59 06:59
Intake Total 480 / 480 1859
Balance 480 / 480 1859
--- NOTE | 2025-08-25 13:43 | W.DCSUMMARY ---
Discharge Summary
Discharge Data
Date of Admission: 08/23/25
Date of Discharge: 08/25/25
-
Pending Results: No
Hospital Course
40-year-old female with past medical history of lupus, depression came to the hospital for abdominal pain, nausea and diarrhea. Patient was recently admitted for hospital and was found to have colitis which was deemed secondary to infectious.
Patient was discharged on p.o. antibiotic which she completed prior to arrival to the hospital. Patient stated of diarrhea however the frequency continue to decrease and had no further bowel movements during hospitalization. Patient had abdominal
pain which was controlled with Tylenol and Toradol and improved during hospitalization. Intermittent episode of nausea. Diet was slowly advanced from liquid to low residue which she was able to tolerate. Labs were checked and found to be in
stable. Remained afebrile. IV fluid was discontinued. Patient was discharged home with recommendation to follow-up with her primary lead network architect.
Discharge Plan
-
Patient Disposition: Home (Routine Discharge)
Discharge Diagnosis/Procedures: abdominal pain/diarrhea likely 2/2 recent colitis
Condition: Fair
Diet: Low Residue
Activity: As tolerated
Driving Restrictions: As prior to admission
Referrals:
Eleazar Juarez DO [Family Provider, Family Practice] - in less than 1 week
Prescriptions:
Continued
fluoxetine 10 mg Tablet
60 mg PO DAILY
therapeutic multivitamin Tablet
1 tab PO DAILY
hydroxychloroquine [Plaquenil] 200 mg Tablet
200 mg PO DAILY
cholecalciferol (vitamin D3) [Vitamin D3] 25 mcg (1,000 unit) Tablet
25 mcg PO DAILY
levocetirizine [Xyzal] 5 mg Tablet
5 mg PO DAILY
Discharge Orders:
Discharge Patient (As Directed); Ordered 08/25/25
Ordered By: Gopal Delgado
Discharge Date and Time
Print Language: [place] ISLANDER
--- NOTE | 2025-08-25 13:44 | CM ---
Patient is discharged to home today with no needs.
She anticipates a friend driving her home, and if unavailable will arrange for an Uber.
Plan: Discharge to home with no identified needs.
[2025-08-25 13:58] VITALS: BP 109/73
== END 2025-08-25 14:12 | disposition home or self-care (01) ==
LOC: 3 WEST ACU 22:47
PROVIDERS: Emergency Medicine; ADMITTING PHYSICIAN Hospitalist; ATTENDING PHYSICIAN Hospitalist; EMERGENCY PHYSICIAN Emergency Medicine; FAMILY PHYSICIAN Family Medicine
DX: K52.9 Noninfective gastroenteritis and colitis, unspecified (principal); R10.9 Unspecified abdominal pain; M32.9 Systemic lupus erythematosus, unspecified; F32.A Depression, unspecified; F41.9 Anxiety disorder, unspecified; N28.9 Disorder of kidney and ureter, unspecified; R74.01 Elevation of levels of liver transaminase levels; M19.90 Unspecified osteoarthritis, unspecified site; J45.909 Unspecified asthma, uncomplicated; Z90.49 Acquired absence of other specified parts of digestive tract; Z90.710 Acquired absence of both cervix and uterus; Z88.8 Allergy status to other drugs, medicaments and biological substances; Z88.1 Allergy status to other antibiotic agents; Z91.010 Allergy to peanuts; Z88.0 Allergy status to penicillin; Z91.013 Allergy to seafood; Z32.02 Encounter for pregnancy test, result negative
CPT/HCPCS: 74177; 80053; 81003; 81015; 83690; 84703; 85025; 87086; 96361; 96374; 96375; 99285; G0378; Q9967